=== PATIENT | male | born 1985 | race Caucasian/White ===

== ENCOUNTER → 2021-04-10 | Emergency (ER) | payer OTHER ==
[~2021-04-10] VITALS: Ht 165.1 cm; Wt 54.4 kg
[~2021-04-10] MED LIST: EPIPEN0.3 MG/0.1 IM; IBUPROFEN200 M1 PO; KEPPRA750 MG PO; LIPITOR40 MG PO; MILK OF MA400 MG/5 M PO; RISPERDAL 1 MG T1 MG PO; TRILEPTAL300 MG PO; TYLENOL325 MG PO; VENLAFAXINE HCL75 M2 PO
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
[2021-04-10 11:23] LABS: HEMATOCRIT 43.8 % (42.0-52.0); HEMOGLOBIN 15.1 gm/dL (14.0-18.0); MCH 31.8 pg (26.0-34.0); MCHC 34.6 g/dL (28.0-37.0); MCV 91.8 fL (80.0-100.0); RBC 4.77 mil/uL (4.50-6.00); RDW 11.9 % (10.5-14.5); WBC 5.8 thou/uL (4.0-11.0)
[2021-04-10 11:26] LABS: ANION GAP 11 mmol/L (7-16); BUN 15 mg/dL (7-18); CALCIUM 9.4 mg/dL (8.5-10.1); CHLORIDE 104 mmol/L (98-107); CO2 27 mmol/L (21-32); CREATININE 0.8 mg/dL (0.7-1.3); GLUCOSE 93 mg/dL (74-106); POTASSIUM 4.3 mmol/L (3.5-5.1); SODIUM 142 mmol/L (136-145)
[2021-04-10 11:32] LABS: ALBUMIN 4.1 g/dL (3.4-5.0); SALICYLATE < 2.8 mg/dL (2.8-20.0); SGOT 12 U/L (15-37); SGPT 25 U/L (16-63); TOTAL BILIRUBIN 0.6 mg/dL (0.2-1.0); TOTAL PROTEIN 6.8 g/dL (6.4-8.2)
[2021-04-10 15:33] VITALS: BP 117/79
== END ==
LOC: ER 10:53
PROVIDERS: Nurse Practitioner Family
DX: U07.1 COVID-19 (principal); F69 Unspecified disorder of adult personality and behavior; F20.9 Schizophrenia, unspecified; F41.9 Anxiety disorder, unspecified; E78.5 Hyperlipidemia, unspecified; F32.9 Major depressive disorder, single episode, unspecified; Z79.891 Long term (current) use of opiate analgesic; Z79.899 Other long term (current) drug therapy; Z88.6 Allergy status to analgesic agent; Z91.030 Bee allergy status; Z91.012 Allergy to eggs; Z91.010 Allergy to peanuts; Z91.014 Allergy to mammalian meats; Z91.013 Allergy to seafood; Z91.018 Allergy to other foods; Z91.09 Other allergy status, other than to drugs and biological substances

== ENCOUNTER 2021-04-17 13:11 | Emergency (ER) | payer OTHER ==
[~2021-04-17] VITALS: Ht 165.1 cm; Wt 54.4 kg
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
[2021-04-17 23:26] VITALS: BP 125/79
== END 2021-04-17 16:44 ==
LOC: ER 13:11
DX: S46.911A Strain of unspecified muscle, fascia and tendon at shoulder and upper arm level, right arm, initial encounter (principal); S66.811A Strain of other specified muscles, fascia and tendons at wrist and hand level, right hand, initial encounter; S09.11XA Strain of muscle and tendon of head, initial encounter; F20.9 Schizophrenia, unspecified; F41.9 Anxiety disorder, unspecified; F31.9 Bipolar disorder, unspecified; E78.5 Hyperlipidemia, unspecified; Z79.899 Other long term (current) drug therapy; Z88.6 Allergy status to analgesic agent; Z91.030 Bee allergy status; Z91.018 Allergy to other foods; Z91.010 Allergy to peanuts; Z91.014 Allergy to mammalian meats; Z91.013 Allergy to seafood; Y04.0XXA Assault by unarmed brawl or fight, initial encounter; Y93.89 Activity, other specified; Y92.89 Other specified places as the place of occurrence of the external cause; Y99.8 Other external cause status

== ENCOUNTER 2021-04-26 13:40 | Emergency (ER) | payer OTHER ==
[~2021-04-26] VITALS: Ht 157.5 cm; Wt 53.1 kg
--- NOTE | ~2021-04-26 | EMS ---
[address] [address] EMS Patient Care Report Name: BALJIT GALINDO Room #: DEP LUIS EDUARDO Bear#: [id number] Admission: 04/26/21 Attend Phys: Discharge: 04/26/21 Date of : [birth year] Report #: [id number] THIS REPORT FOR: //name// Report Transmitted: 04/27/2021 02:29 EMS Care Summary [place], [place]/[facility] Incident [id number] @ 04/26/2021 13:10 Incident Location [address] [facility] [address] Patient BALJIT GALINDO Male, 35 Years 1985 Patient Address [address] [place] [address] Patient History Hyperlipidemia,Anxiety Disorder (Panic Attacks),Depression,Post Traumatic Stress Disorder (PTSD),Schizoaffective Disorder, Patient Allergies Acetaminophen,Atorvastatin, Patient Medications Atorvastatin, Ibuprofen, Epinephrine Auto-injector, Acetaminophen, Chief Complaint seizure Disposition Transported No Lights/[place] Dispatch Reason Convulsions/Seizure Transported To [facility] Narrative pt found lying on floor in hallway. pt responds to verbal, a&o. staff report that pt approached them, staring blankly and shaking, he then fell to floor, hitting his hd, and cont to "shake for another 15 seconds" no post ictal phase [address] [address] EMS Patient Care Report Name: BALJIT GALINDO Room #: DEP LUIS EDUARDO Bear#: [id number] Admission: 04/26/21 Attend Phys: Discharge: 04/26/21 Date of : [birth year] Report #: [id number] noted. pt c/o hd pain where he has a hematoma, and coccyx pain from the fall. pt lifted to the cot, tx as listed in flow chart. transport w/o change, pt talkative throughout transport. report to staff on arrival [facility] rm 7 Initial Vitals @13:22P: 102,R: 18,BP: 113/79,Pain: 6/10,GCS: 15,Glucose: 106,CO: 6,SpO2: 97,Revised Trauma: 12, Assessments @13:18MENTAL:Time Oriented,Event Oriented,Place Oriented,Person Oriented,SKIN:No Abnormalities,HEENT:Head/Face: Other,Eyes: Left Pupil: 4-mm,Eyes: Right Pupil: 4-mm,LUNG SOUNDS:ABDOMEN:PELVIS//GI:EXTREMITIES:Right Arm: Other,PULSE:Radial: 2+ Normal,NEURO:Seizures, Impression Seizures Procedures @13:18 ALS Assessment Response: Unchanged @13:20 Stretcher Response: Unchanged @13:26 3-Lead ECG Response: Unchanged @13:28 IV Therapy - Saline Lock 10cc (20 ga) Site: Forearm-Left Response: UnchangedSucceeded @13:22 Spinal Motion Restriction Response: UnchangedSucceeded Timeline 13:07,Call Received 13:07,Dispatch Notified 13:10,Dispatched 13:11,En Route 13:16,On Scene 13:18,At Patient 13:18,ALS Assessment,Response: Unchanged 13:20,Stretcher,Response: Unchanged 13:22,Spinal Motion Restriction,Response: UnchangedSucceeded, 13:22,BP: 113/79 M,PULSE: 102,RR: 18 R,SPO2: 97 Ox,ETCO2: ,B,PAIN: 6,GCS: 15, 13:26,3-Lead ECG,Response: Unchanged 13:28,IV Therapy - Saline Lock 10cc 20 ga Site: Forearm-Left,Response: UnchangedSucceeded, 13:29,Depart Scene 13:37,At Destination 14:01,Call Closed Disclaimer [facility] [address] [place] [address] EMS Patient Care Report Name: [id number] Admission: 04/26/21 Attend Phys: Discharge: 04/26/21 Date of : [birth year] Report #: [id number] v1.1 Copyright 2021 [employer] This EMS Care Summary contains data elements from the applicable legal record (which may be displayed differently). It is designed to provide pertinent information for the following purposes: continuity of care, clinical quality, and state data reporting. The complete legal record is available to ED staff and administrators of the receiving hospital in [employer]'s Patient Tracker. All data is provided "as is."
[2021-04-26 14:49] LABS: ABSOLUTE NEUTROPHILS 2.9 thou/uL (1.4-8.2); BASOPHILS 0.4 % (0.0-2.0); EOSINOPHILS 0.5 % (0.0-3.0); HEMATOCRIT 44.2 % (42.0-52.0); HEMOGLOBIN 14.8 gm/dL (14.0-18.0); LYMPHOCYTES 23.9 % (24.0-44.0); MCH 31.2 pg (26.0-34.0); MCHC 33.5 g/dL (28.0-37.0); MONOCYTES 7.1 % (1.0-8.0); PLATELET COUNT 253 thou/uL (150-400); POLYS 68.1 % (36.0-66.0); RBC 4.76 mil/uL (4.50-6.00); RDW 12.7 % (10.5-14.5); WBC 4.3 thou/uL (4.0-11.0)
[2021-04-26 15:04] VITALS: BP 101/69
[2021-04-26 16:00] LABS: CALCIUM 8.6 mg/dL (8.5-10.1); CREATININE 0.9 mg/dL (0.7-1.3); POTASSIUM 3.7 mmol/L (3.5-5.1)
[2021-04-26 16:06] LABS: ALBUMIN 3.5 g/dL (3.4-5.0); TOTAL BILIRUBIN 0.4 mg/dL (0.2-1.0); TOTAL PROTEIN 5.8 g/dL (6.4-8.2)
--- NOTE | 2021-04-29 07:34 | EKG ---
[place] [address] [place] [address] ELECTROCARDIOGRAM REPORT Name: BALJIT GALINDO Room #: AMY Bear#: [id number] Admission: 04/26/21 Attend Phys: Discharge: 04/26/21 Date of : [birth year] Report #: [id number] [facility] ED Test Date: 2021-04-26 Test Time: 14:26:54 Pat Name: BALJIT GALINDO Department: Room: Gender: [employer]: : 1985 Requested By: Madison Guevara Order Number: [id number] MD: Mitch Gabriel Measurements Intervals [place] Rate: 105 P: 50 NM: 131 QRS: 112 QRSD: 87 T: 23 QT: 343 QTc: 454 Interpretive Statements Sinus tachycardia Right axis deviation Borderline T wave abnormalities Baseline wander in lead(s) V2 No previous ECG available for comparison Electronically Signed On 04-29-2021 7:34:15 [employer] by Mitch Gabriel [email or web address] <ELECTRONICALLY SIGNED> By: Mitch Gabriel MD, [facility] 04/29/21 0734 1426 1426 Mitch Gabriel MD, FACC /EPI
== END 2021-04-26 19:50 | disposition home or self-care (01) ==
LOC: ER 13:40
PROVIDERS: Nurse Practitioner
DX: G40.909 Epilepsy, unspecified, not intractable, without status epilepticus (principal); Z91.014 Allergy to mammalian meats; Z91.012 Allergy to eggs; Z91.010 Allergy to peanuts; Z91.018 Allergy to other foods; Z91.09 Other allergy status, other than to drugs and biological substances